=== PATIENT | female | born 1960 | race Caucasian/White ===

== ENCOUNTER 2017-12-08 21:33 | Emergency (ER) | payer MEDICAID ==
--- NOTE | 2017-12-08 21:57 | Emergency Department Record ---
History of Present Illness - General Chief Complaint: Back Pain/Injury Stated Complaint: LT SIDE HIP/BACK PAIN Time Seen by Provider: 12/08/17 21:53 Source: Patient Mode of Arrival: Ambulatory Limitations: No limitations - History of Present Illness Initial Comments: 57 yo female presents to ED for evaluation of left sided back and hip pain following a fall onto her RIGHT side 2 days ago. Patient denies specific injury to the left hip or back during her fall. Patient reports taking Ultram and Flexeril for her symptoms that do provide some relief, but she reports that she still has a lot of pain after taking the medications. Patient denies lower extremity weakness on examination, and reports that she is able to ambulate without assistance following her fall. MD Complaint: Back pain Onset/Timin -: Days(s) Similar Symptoms Previously: No Place: Home Radiation: Left leg Severity: Mild Quality: Aching, Sharp Consistency: Getting worse Improves With: Movement Worsens With: Movement, Sitting upright, Walking Context: Fall Associated Symptoms: Denies other symptoms Treatments Prior to Arrival: Prescription analgesics - Related Data Previous Rx's Medication Instructions Recorded Diazepam [Valium] 5 mg PO Q8H PRN #15 tab 12/08/17 Ibuprofen [Motrin] 800 mg PO Q6H #30 tab 12/08/17 Tramadol HCl [Ultram] 50 mg PO Q6H PRN #15 tab 12/08/17 Allergies Allergy/AdvReac Type Severity Reaction Status Date / Time acetaminophen Allergy CHEST PAIN Unverified 10/15/17 09:04 [From Tylenol-Codeine] codeine phosphate Allergy CHEST PAIN Unverified 10/15/17 09:04 [From Tylenol-Codeine] Travel Screening - Travel/Exposure Within Last 30 Days Have you traveled within the last 30 days?: No - Travel/Exposure Within Last Year Have you traveled outside the [place] in the last year?: No - Additonal Travel Details Have you been exposed to anyone with a communicable illness?: No - Travel Symptoms Symptom Screening: None Review of Systems Constitutional: Denies: Chills, Fever, Malaise, Night sweats Eyes: Denies: Eye discharge, Eye pain ENT: Denies: Congestion, Ear pain, Epistaxis Respiratory: Denies: Cough, Dyspnea Cardiovascular: Denies: Chest pain, Dyspnea on exertion Endocrine: Denies: Fatigue, Heat or cold intolerance Gastrointestinal: Denies: Abdominal pain, Nausea, Vomiting Genitourinary: Denies: Incontinence, Retention Musculoskeletal: Reports: Arthralgia, Back pain. Denies: Gout, Joint swelling Skin: Denies: Bruising, Change in color Neurological: Denies: Abnormal gait, Confusion, Headache, Seizure Psychiatric: Denies: Anxiety Hematological/Lymphatic: Denies: Anemia, Blood Clots Past Medical History - SOCIAL HISTORY Smoking Status: Current every day smoker Alcohol Use: Occasional Drug Use: None - RESPIRATORY Hx Respiratory Disorders: No - CARDIOVASCULAR Hx Cardio Disorders: Yes Hx Chest Pain: Yes (2009) Comment:: hypercholesteremia - NEURO Hx Neuro Disorders: No - GI Hx GI Disorders: No - Hx Genitourinary Disorders: No - ENDOCRINE Hx Endocrine Disorders: Yes Hx Diabetes: Yes - MUSCULOSKELETAL Hx Musculoskeletal Disorders: Yes Hx Fibromyalgia: Yes - PSYCH Hx Psych Problems: Yes Hx Anxiety: Yes Hx Depression: Yes - HEMATOLOGY/ONCOLOGY Hx Hematology/Oncology Disorders: No Family Medical History Any Significant Family History?: No Hx Cancer: Grandparents Hx Diabetes: Grandparents Physical Exam - General General Appearance: Alert, Oriented x3, Cooperative, Mild distress Limitations: No limitations - Head Head exam: Atraumatic, Normocephalic, Normal inspection Head exam detail: negative: Abrasion, Contusion, Buitrago's sign, General tenderness, Hematoma, Laceration - Eye Eye exam: Normal appearance. negative: Conjunctival injection, Periorbital swelling, Periorbital tenderness, Scleral icterus - ENT Ear exam: negative: Auricular hematoma, Auricular trauma Nasal Exam: negative: Active bleeding, Discharge, Dried blood, Foreign body Mouth exam: negative: Drooling, Laceration, Tongue elevation - Neck Neck exam: Normal inspection. negative: Meningismus, Tenderness - Respiratory Respiratory exam: Normal lung sounds bilaterally. negative: Rales, Respiratory distress, Rhonchi, Stridor - Cardiovascular Cardiovascular Exam: Regular rate, Normal rhythm, Normal heart sounds - GI/Abdominal GI/Abdominal exam: Soft. negative: Rebound, Rigid, Tenderness - Rectal Rectal exam: Deferred - exam: Deferred - Extremities Extremities exam: Normal inspection, Full ROM. negative: Calf tenderness, Pedal edema, Tenderness - Back Back exam: Reports: Tenderness (TTP at the left SI joint on examination). Denies: CVA tenderness (R), CVA tenderness (L) - Neurological Neurological exam: Alert, Normal gait, Oriented X3 - Psychiatric Psychiatric exam: Normal affect, Normal mood - Skin Skin exam: Normal color. negative: Abrasion Type of lesion: negative: abrasion Course Vital Signs 12/08/17 12/08/17 21:39 21:50 Temperature 98.0 F Pulse Rate 93 H Respiratory 18 Rate Blood Pressure 123/72 Pulse Ox 98 - Reevaluation(s) Reevaluation #1: 12/08/17 22:28 Hip/Pelvis: No acute process Patient was updated on her results, will replace her Flexeril with Valium as needed as the patient reports that they don't really improve her symptoms, prescribe #15 Ultram as she is almost out, and Motrin 800 mg. Patient agrees with the plan as discussed. Disposition Disposition: Discharge Clinical Impression: Muscle strain Disposition: Home, Self-Care Condition: (2) Stable Instructions: Muscle Strain (ED) Additional Instructions: Return to ED if your symptoms worsen or if you have any concerns. Motrin, Ultram, and Valium as directed. Follow-up with your family doctor in 3-5 days as directed. Prescriptions: Diazepam [Valium] 5 mg PO Q8H PRN #15 tab PRN Reason: Spasms Ibuprofen [Motrin] 800 mg PO Q6H #30 tab Tramadol HCl [Ultram] 50 mg PO Q6H PRN #15 tab PRN Reason: Pain - Moderate (5-7) Forms: Patient Portal Access Time of Disposition: 22:32 Quality - Quality Measures Quality Measures: N/A - Blood Pressure Screening Does Patient Have Any of the Following: No Blood Pressure Classification: Pre-Hypertensive BP Reading Systolic Measurement: 123 Diastolic Measurement: 72 Screening for High Blood Pressure: < Pre-Hypertensive BP, F/U Documented > [ G8950] Pre-Hypertensive Follow-up Interventions: Referral to alternative/primary care provider.
[2017-12-08] MEDS ORDERED: DIAZEPAM 5 MG TABLET PO ONE (22:27)
--- NOTE | 2017-12-10 07:06 | RADIOLOGY REPORT ---
EXAM: BILATERAL HIPS WITH PELVIS HISTORY: BILATERAL HIP PAIN STATUS POST FALL ON FRIDAY. TECHNIQUE: An AP view of the pelvis and AP and lateral views of both hips were obtained. Comparison: Previous CT scan of the pelvis dated 07/13/15. Encounter: Initial. FINDINGS: The bones appear intact. There is no acute fracture or dislocation. There are mild arthritic changes of both hips and sacroiliac joints which appear similar to the previous study. Degenerative changes are partially visualized within the lower lumbar spine. The bony pelvis appears intact. IMPRESSION: 1. NO ACUTE HIP OR PELVIC PATHOLOGY. 2. MILD ARTHRITIC CHANGES WITHIN THE HIPS AND SACROILIAC JOINTS. JOB NUMBER: [id number] MTDD
== END 2017-12-08 22:48 | disposition home or self-care (01) ==
LOC: ER 21:33
DX: S76.012A Strain of muscle, fascia and tendon of left hip, initial encounter (principal); S39.012A Strain of muscle, fascia and tendon of lower back, initial encounter; W00.0XXA Fall on same level due to ice and snow, initial encounter; F17.210 Nicotine dependence, cigarettes, uncomplicated; Y92.009 Unspecified place in unspecified non-institutional (private) residence as the place of occurrence of the external cause
CPT/HCPCS: 99283 ×2; 73521; J3490

== ENCOUNTER 2018-03-12 20:01 | Emergency (ER) | payer MEDICAID ==
--- NOTE | 2018-03-12 20:17 | Emergency Department Record ---
History of Present Illness - General Chief complaint: Pain Stated complaint: INJURY TO LEFT ARM AND SHOULDER Time Seen by Provider: 03/12/18 20:02 Source: Patient Mode of Arrival: Ambulatory Limitations: No limitations - History of Present Illness Initial comments: 57 yo female presents to ED for evaluation of left shoulder pain following an injury last night. Patient reports that her son was helping her stand from a chair 24 hours ago and gently helped pull her up using the left upper extremity. Patient reports a "pop" sensation followed by pain that worsened today. Patient did take oxycodone for her pain symptoms this morning. Patient is currently post-op from a right rotator cuff tear procedure through [facility] in mid-January of this year. Patient reports pain with movement, but reports ROM is intact. MD Complaint: Joint pain Onset/Timin -: Hour(s) Location: Left, Shoulder Severity scale (1-10): 9 Quality: Aching, Dull, Sharp Consistency: Constant Improves with: Rest Worsens with: Exertion, Palpation Associated Symptoms: Denies other symptoms - Related Data Previous Rx's Medication Instructions Recorded Hydrocodone/APAP 5/325Mg [[place] 1 each PO Q6H PRN #10 tab 03/12/18 5Mg/325Mg] Allergies Allergy/AdvReac Type Severity Reaction Status Date / Time codeine phosphate Allergy CHEST PAIN Verified 03/12/18 20:12 [From Tylenol-Codeine] Travel Screening - Travel/Exposure Within Last 30 Days Have you traveled within the last 30 days?: No - Travel Symptoms Symptom Screening: None Review of Systems Constitutional: Denies: Chills, Fever, Malaise, Night sweats Eyes: Denies: Eye discharge, Eye pain ENT: Denies: Congestion, Ear pain, Epistaxis Respiratory: Denies: Cough, Dyspnea Cardiovascular: Denies: Chest pain, Dyspnea on exertion Endocrine: Denies: Fatigue, Heat or cold intolerance Gastrointestinal: Denies: Abdominal pain, Nausea, Vomiting Genitourinary: Denies: Incontinence, Retention Musculoskeletal: Reports: Arthralgia. Denies: Back pain, Gout, Joint swelling Skin: Denies: Bruising, Change in color Neurological: Denies: Abnormal gait, Confusion, Headache, Seizure Psychiatric: Denies: Anxiety Hematological/Lymphatic: Denies: Anemia, Blood Clots Past Medical History - SOCIAL HISTORY Smoking Status: Current every day smoker - RESPIRATORY Hx Respiratory Disorders: No - CARDIOVASCULAR Hx Cardio Disorders: Yes Hx Chest Pain: Yes (2009) Comment:: hypercholesteremia - NEURO Hx Neuro Disorders: No - GI Hx GI Disorders: No - Hx Genitourinary Disorders: No - ENDOCRINE Hx Endocrine Disorders: Yes Hx Diabetes: Yes - MUSCULOSKELETAL Hx Musculoskeletal Disorders: Yes Hx Arthritis: Yes Hx Fibromyalgia: Yes Comment:: Scoliosis; DDD - PSYCH Hx Psych Problems: Yes Hx Anxiety: Yes Hx Depression: Yes - HEMATOLOGY/ONCOLOGY Hx Hematology/Oncology Disorders: No Family Medical History Any Significant Family History?: Yes Hx Cancer: Grandparents Hx Diabetes: Grandparents Physical Exam - General General Appearance: Alert, Oriented x3, Cooperative Limitations: No limitations - Head Head exam: Atraumatic, Normocephalic, Normal inspection Head exam detail: negative: Abrasion, Contusion, Buitrago's sign, General tenderness, Hematoma, Laceration - Eye Eye exam: Normal appearance. negative: Conjunctival injection, Periorbital swelling, Periorbital tenderness, Scleral icterus - ENT Ear exam: negative: Auricular hematoma, Auricular trauma Nasal Exam: negative: Active bleeding, Discharge, Dried blood, Foreign body Mouth exam: negative: Drooling, Laceration, Muffled voice, Tongue elevation - Neck Neck exam: Normal inspection. negative: Meningismus, Tenderness - Respiratory Respiratory exam: Normal lung sounds bilaterally. negative: Rales, Respiratory distress, Rhonchi, Stridor - Cardiovascular Cardiovascular Exam: Regular rate, Normal rhythm, Normal heart sounds - GI/Abdominal GI/Abdominal exam: Soft. negative: Rebound, Rigid, Tenderness - Rectal Rectal exam: Deferred - exam: Deferred - Extremities Extremities exam: Tenderness, Other (RUE already in post-operative splint, left shoulder has no clinical signs for dislocation, mild TTP along the supraspinatis region posteriorly, FROM intact actively (with pain), compartments are soft on examination, strong distal radial pulse is present.). negative: Calf tenderness, Pedal edema - Back Back exam: Denies: CVA tenderness (R), CVA tenderness (L) - Neurological Neurological exam: Alert, Normal gait, Oriented X3 - Psychiatric Psychiatric exam: Normal affect, Normal mood - Skin Skin exam: Normal color. negative: Abrasion Type of lesion: negative: abrasion Course Vital Signs 03/12/18 20:05 Temperature 98 F Pulse Rate [ 103 H Pulse Ox Probe] Respiratory 20 Rate Blood Pressure 116/60 [Left Arm] Pulse Ox 98 - Reevaluation(s) Reevaluation #1: 03/12/18 20:35 Left shoulder: Mild DJD, no acute process identified. Patient was updated on her radiology result, recommended follow-up with her orhtopedist through [facility] for possible MRI of the shoulder for further evaluation. Patient verbalizes understanding of all instructions, and the patient appears stable for discharge at this time. Disposition Disposition: Discharge Clinical Impression: Left shoulder strain Qualifiers: Encounter type: initial encounter Qualified Code(s): S46.912A - Strain of unspecified muscle, fascia and tendon at shoulder and upper arm level, left arm , initial encounter Disposition: Home, Self-Care Condition: (2) Stable Instructions: Rotator Cuff Injury (ED) Additional Instructions: Return to ED if your symptoms worsen or if you have any concerns. Continue oxycodone as previously prescribed. [facility] as directed. Prescriptions: Hydrocodone/APAP 5/325Mg [[place] 5Mg/325Mg] 1 each PO Q6H PRN #10 tab PRN Reason: Pain - Moderate (5-7) Forms: Patient Portal Access Time of Disposition: 20:18 Quality - Quality Measures Quality Measures: N/A - Blood Pressure Screening Does Patient Have Any of the Following: No Blood Pressure Classification: Normal BP Reading Systolic Measurement: 109 Diastolic Measurement: 65 Screening for High Blood Pressure: < Normal BP, F/U Not Required > [G8783]
--- NOTE | 2018-03-13 10:29 | RADIOLOGY REPORT ---
EXAM: LEFT SHOULDER HISTORY: SHOULDER PAIN. TECHNIQUE: Three views of the left shoulder were obtained. Comparison: None. Encounter: Initial. FINDINGS: Osteopenia. Degenerative changes of the acromioclavicular and glenohumeral joints. Negative for an acute fracture or dislocation. The soft tissues are unremarkable. IMPRESSION: OSTEOPENIA. DEGENERATIVE CHANGE. JOB NUMBER: [id number] MTDD
== END 2018-03-12 20:52 | disposition home or self-care (01) ==
LOC: ER 20:01
DX: S46.912A Strain of unspecified muscle, fascia and tendon at shoulder and upper arm level, left arm, initial encounter (principal); X50.0XXA Overexertion from strenuous movement or load, initial encounter; F17.210 Nicotine dependence, cigarettes, uncomplicated; E11.9 Type 2 diabetes mellitus without complications
CPT/HCPCS: 99283

== ENCOUNTER 2018-09-24 14:38 | Emergency (ER) | payer MEDICAID ==
--- NOTE | 2018-09-24 15:11 | Emergency Department Record ---
History of Present Illness - General Chief Complaint: Numbness Stated Complaint: RT HAND IS NUMB Time Seen by Provider: 09/24/18 14:50 Source: Patient Mode of Arrival: Ambulatory Limitations: No limitations - History of Present Illness Initial Comments: The patient is here due to chronic R hand numbness. She has had the problem for at least 2 months. The symptoms start mainly at night and she wakes up and has to shake the hand sometimes to get the feeling back. There is no reported R hand or arm weakness. The symptoms seem to be worsening over the last 2 weeks. The patient denies any LOAIZA, neck pain, CP, SOB, balance issues, visual changes, or leg numbness or weakness. She does have an extensive hx of arthritis. Since the symptoms are worsening she did call her Orthopedic Surgeon at [facility] due to her chronic R shoulder issues and was told it was unlikely a problem with the R shoulder joint. She then called her PCP and was told she should go to the ER due to having more resources to work with in the ER. Onset/Timin -: Month(s) Location: Other History of same: No Place: Home Severity: Moderate Improves With: None Worsens With: None Associated Symptoms: Denies other symptoms Treatments Prior to Arrival: None - Ayden Coma Scale Eye Response: (4) Open spontaneously Motor Response: (6) Obeys commands Verbal Response: (5) Oriented Ayden Total: 15 - Related Data Allergies/Adverse Reactions: Allergies Allergy/AdvReac Type Severity Reaction Status Date / Time codeine phosphate Allergy CHEST PAIN Verified 09/24/18 14:50 [From Tylenol-Codeine] Travel Screening - Travel/Exposure Within Last 30 Days Have you traveled within the last 30 days?: No Review of Systems Constitutional: Denies: Chills, Fever Eyes: Denies: Eye discharge ENT: Denies: Congestion Respiratory: Denies: Cough, Dyspnea Past Medical History - SOCIAL HISTORY Smoking Status: Current every day smoker Alcohol Use: None Drug Use: None - RESPIRATORY Hx Respiratory Disorders: No - CARDIOVASCULAR Hx Cardio Disorders: Yes Hx Chest Pain: Yes (2009) Comment:: hypercholesteremia - NEURO Hx Neuro Disorders: No - GI Hx GI Disorders: No - Hx Genitourinary Disorders: No - ENDOCRINE Hx Endocrine Disorders: Yes Hx Diabetes: Yes - MUSCULOSKELETAL Hx Musculoskeletal Disorders: Yes Hx Arthritis: Yes Hx Fibromyalgia: Yes Comment:: Scoliosis; DDD - PSYCH Hx Psych Problems: Yes Hx Anxiety: Yes Hx Depression: Yes - HEMATOLOGY/ONCOLOGY Hx Hematology/Oncology Disorders: No Family Medical History Any Significant Family History?: Yes Hx Cancer: Grandparents Hx Diabetes: Grandparents Physical Exam - General General Appearance: Alert, Oriented x3, Cooperative, No acute distress - Head Head exam: Atraumatic, Normocephalic, Normal inspection - Eye Eye exam: Normal appearance, PERRL, EOMI - Neck Neck exam: Normal inspection, Full ROM. negative: Tenderness - Respiratory Respiratory exam: Normal lung sounds bilaterally. negative: Respiratory distress - Cardiovascular Cardiovascular Exam: Regular rate, Normal rhythm, Normal heart sounds - GI/Abdominal GI/Abdominal exam: Soft, Normal bowel sounds. negative: Tenderness - Extremities Extremities exam: Normal inspection, Full ROM, Normal capillary refill. negative: Tenderness - Neurological Neurological exam: Alert, CN II-XII intact, Motor sensory deficit (There is very subtle subjective decreased sensation to the R hand in a glove distribution. There is no weakness to the R arm or hand. ), Normal gait, Oriented X3, Reflexes normal, Other (Neg Drift and Rhomberg exams.). negative: Abnormal gait, Altered - Psychiatric Psychiatric exam: negative: Anxious Course Vital Signs 09/24/18 14:46 Temperature 97.8 F Pulse Rate 84 Respiratory 20 Rate Blood Pressure 125/74 Pulse Ox 100 - Reevaluation(s) Reevaluation #1: I did discuss the xrays with the patient and the need for further evaluation for possibly a cervical nerve issue or Carpal tunnel dz. I did discuss the case with the patient's PCP Dory Williamson and she will f/u with the patient on those issues. 09/24/18 16:14 Medical Decision Making - Data Complexity MDM Data: X-Ray Ordered and/or Reviewed - Radiology Data Radiology results: Report reviewed (Cervical Spine: Multilevel DJD) Disposition Disposition: Discharge Clinical Impression: Numbness and tingling in right hand Disposition: Home, Self-Care Condition: (2) Stable Instructions: Paresthesia (ED) Additional Instructions: Please take Tylenol for pain and please see your family doctor for further evaluation of your chronic R hand symptoms. Please wear the wrist splint until evaluation. Return to the ER for any worsening symptoms. Forms: Patient Portal Access Time of Disposition: 16:16 Quality - Quality Measures Quality Measures: N/A - Blood Pressure Screening View Details: Yes Does Patient Have Any of the Following: No Blood Pressure Classification: Pre-Hypertensive BP Reading Systolic Measurement: 125 Diastolic Measurement: 74 Screening for High Blood Pressure: < Pre-Hypertensive BP, F/U Documented > [ G8950] Pre-Hypertensive Follow-up Interventions: Referral to alternative/primary care provider.
--- NOTE | 2018-09-26 23:57 | RADIOLOGY REPORT ---
EXAM: CERVICAL SPINE Minimum 4 Views HISTORY: RIGHT HAND PAIN AND NUMBNESS, NO KNOWN INJURY, NUMBNESS WORSE FOR TWO WEEKS. TECHNIQUE: Six views cervical spine. COMPARISON: None. ENCOUNTER: Nonapplicable. FINDINGS: There is some loss of the normal cervical lordosis, likely due to positioning or spasm. Narrowing of the 5th and 6th cervical interspaces with associated hypertrophic spurring. There is probably fusion of the C6-7 vertebral bodies. No prevertebral soft tissue swelling is evident. No definite fracture or destructive lesion seen in the cervical spine. Metallic density within the left side of the mandible may simply be due to prior dental work although clinical correlation is suggested. IMPRESSION: 1. LOSS OF LORDOSIS, LIKELY DUE TO POSITIONING OR SPASM. 2. MULTILEVEL DEGENERATIVE CHANGE IN THE CERVICAL SPINE, PROBABLY WITH FUSION OF THE BODIES OF THE C6 AND C7 VERTEBRAE. OTHER FINDINGS NOTED ABOVE. JOB NUMBER: [id number] [facility]
== END 2018-09-24 16:10 | disposition home or self-care (01) ==
LOC: ER 14:38
DX: R20.0 Anesthesia of skin (principal); R20.2 Paresthesia of skin; F17.210 Nicotine dependence, cigarettes, uncomplicated
CPT/HCPCS: 72050; 99283

== ENCOUNTER 2018-10-30 08:57 | Day surgery (SDC) | payer MEDICAID ==
[2018-10-30] MEDS ORDERED: PROPOFOL 10 MG/ML VIAL IV ONE (08:58)
[2018-10-30] MEDS ORDERED: ONDANSETRON HCL IV 4 MG/2 ML VIAL IVP ONE (08:58)
[2018-10-30] MEDS ORDERED: LIDOCAINE 2% MDV (20MG/ML) 20ML VIAL IV ONE (08:58)
--- NOTE | 2018-11-04 11:40 | Operative Note ---
DATE OF SURGERY: 10/30/2018 SURGEON: Melo Kwon MD OPERATION: ESOPHAGOGASTRODUODENOSCOPY. INDICATIONS: This is a 58-year-old female with history of epigastric pain who presented for esophagogastroduodenoscopy. POSTOPERATIVE DIAGNOSES: 1. Normal esophagus with no evidence of reflux disease. 2. Diffuse gastritis. 3. Normal duodenum. ANESTHESIA: Sedation is per Anesthesia. Pulse oximetry was monitored throughout the procedure to maintain O2 saturation of 90% or greater. Supplemental oxygen was administered via nasal cannula. Cardiac and vital signs were monitored throughout the duration of the procedure, and they were stable. The procedure of esophagogastroduodenoscopy and risks and benefits of the procedure, including the risk of bleeding and perforation, among others, were explained to the patient who voiced understanding and agreed to have the procedure done. Physical examination was performed, and the patient was found stable for sedation. PROCEDURE: The patient was placed in the left lateral position. Sedation was initiated. A plastic bite block was inserted into the oral cavity. The Olympus [id number] gastroscope was introduced into the oral cavity and advanced to the proximal esophagus without difficulty. The esophageal mucosa was carefully examined upon introduction of the gastroscope. The proximal and mid and distal esophageal mucosa appeared normal. The gastroscope was then advanced into the stomach, and surveillance of the stomach revealed diffuse erythema along the gastric body and antrum but no ulcers were noted. The gastroscope was then advanced to the descending duodenum without difficulty. The duodenal bulb and descending duodenum appeared normal. The gastroscope was then withdrawn into the stomach and retroflexion was performed. There were no other lesions noted. The gastroscope was then withdrawn while carefully examining the gastric and esophageal mucosa. No other lesions noted. Multiple gastric biopsies were obtained. The patient remained with stable vital signs and was transferred to the recovery room. RECOMMENDATIONS: 1. The patient should continue on her proton pump inhibitors. 2. Follow up on the biopsies. 3. I would be happy to see her back in the office as needed. Thank you for allowing me to participate in the care of your patient. CC: LLOYD Henderson
== END 2018-10-30 11:08 | disposition home or self-care (01) ==
LOC: HOP 08:57
PROVIDERS: ATTEND Internal Medicine Gastroenterology
DX: R10.13 Epigastric pain (principal); K29.70 Gastritis, unspecified, without bleeding; K21.9 Gastro-esophageal reflux disease without esophagitis; E78.00 Pure hypercholesterolemia, unspecified; G25.81 Restless legs syndrome; E11.9 Type 2 diabetes mellitus without complications; R60.9 Edema, unspecified
CPT/HCPCS: 43239; 00731; J2405

== ENCOUNTER 2019-04-13 06:42 | Day surgery (SDC) | payer MEDICAID ==
[~2019-04-13 06:42] MED LIST: ACETAMINOPHEN 1,000 MG/100 ML BTL IVPB ONE; FAMOTIDINE 20MG TABLET PO ONE; MECLIZINE 25 MG TABLET PO ONE; METOCLOPRAMIDE 10 MG TABLET PO ONE
[2019-04-13] MEDS ORDERED: KETOROLAC 30 MG/ML VIAL IVP ONE (06:43)
[2019-04-13] MEDS ORDERED: ONDANSETRON HCL IV 4 MG/2 ML VIAL IVP ONE (06:43)
[2019-04-13] MEDS ORDERED: MIDAZOLAM HCL 2MG/2ML VIAL IV ONE (06:43)
[2019-04-13] MEDS ORDERED: PROPOFOL 10 MG/ML VIAL IV ONE (06:43)
[2019-04-13] MEDS ORDERED: LIDOCAINE 2% MDV (20MG/ML) 20ML VIAL IV ONE (06:43)
[2019-04-13] MEDS ORDERED: SEVOFLURANE 250 ML INH ONE (06:43)
[2019-04-13] MEDS ORDERED: FENTANYL PF 100MCG/2ML VIAL IV ONE (06:43)
[2019-04-13] MEDS ORDERED: RINGERS SOLUTION,LACTATED 1,000 ML IV ONE ×2 (07:20→09:04)
[2019-04-13] MEDS ORDERED: CEFAZOLIN 1G VIAL IVPB ONE (08:35)
[2019-04-13] MEDS ORDERED: HYDROCODONE/APAP 5/325MG TABLET PO ONE (09:50)
--- NOTE | 2019-04-15 07:50 | Operative Note ---
DATE OF SURGERY: 04/13/2019 SURGEON: Figueroa Ortiz DO PREOPERATIVE DIAGNOSIS: Carpal tunnel syndrome of the right wrist. POSTOPERATIVE DIAGNOSIS: Carpal tunnel syndrome of the right wrist. OPERATION: Decompression right median nerve at the wrist using 3.5 loop magnification. DESCRIPTION OF PROCEDURE: This 58-year-old female was taken to the operating room and placed in the supine position on the operating room table. General anesthetic was administered. The right upper extremity was elevated, prepped with Hibiclens, and draped in the usual sterile fashion. It was exsanguinated and the tourniquet inflated to 250 mmHg. A palmar incision was utilized following the hypothenar crease, and dissection was carried down through the skin and subcutaneous tissue. The palmar fascia identified and split in line with the skin incision. The flexor retinaculum was subsequently identified. It was punctured and then split to its proximal margin. With the contents of the carpal tunnel under direct vision, the transverse carpal ligament was transected along its ulnar border. The patient did have a very prominent palmaris brevis tendon overlying the transverse carpal ligament. We did not transect this muscle but we elevated it with a freer elevator to expose the transverse carpal ligament beneath and then we shifted it proximally for exposure to the median nerve. The nerve itself appeared to be grossly normal. After the wrist had been completely decompressed, the recurrent motor branch of the median nerve was identified and found to be intact. The wound was irrigated and the tourniquet released. Hemostasis obtained with the electrocautery. The wound closed with interrupted 6-0 nylon suture. Sterile dressings were applied with plaster splint immobilization with the wrist in slight dorsiflexion and the thumb in an adducted position. The patient was then taken to the recovery room in stable condition. GROSS PATHOLOGY: This patient median nerve appeared grossly normal. Some thickening of the tenosynovium of the flexor tendons was present in the carpal canal but this was not disturbed. The patient had a very prominent palmaris brevis muscle, and this muscle was not detached but elevated and the transverse carpal ligament transected underneath it. CC: LLOYD Henderson
== END 2019-04-13 10:10 | disposition home or self-care (01) ==
LOC: SUR 06:42
PROVIDERS: ATTEND Orthopaedic Surgery
DX: G56.01 Carpal tunnel syndrome, right upper limb (principal); E11.9 Type 2 diabetes mellitus without complications; E78.00 Pure hypercholesterolemia, unspecified; K21.9 Gastro-esophageal reflux disease without esophagitis; F17.210 Nicotine dependence, cigarettes, uncomplicated
CPT/HCPCS: 64721; 64727; 01810; 36416; 82948; J1885; J2405; J3010; J0690; J7120

== ENCOUNTER 2019-06-24 23:36 | Emergency (ER) | payer MEDICAID ==
--- NOTE | 2019-06-24 23:46 | Emergency Department Record ---
History of Present Illness - General Stated Complaint: CHEST PAIN Time Seen by Provider: 06/24/19 23:37 Source: Patient, Family Mode of Arrival: Ambulatory Limitations: No limitations - History of Present Illness Initial Comments: 58 yo female presents with chest pain that has been coming and going over the last 30-45 minutes. The pain is a ache just left of the middle of the chest. No radiation of the pain to the jaw, shoulders, or back. She reports she was sitting watching TV at the onset. The discomfort has subsided at this time. No known CAD. She is a smoker, treated for diabetes, elevated cholesterol. PCP Dory Williamson at [facility]. Complaint: Chest pain -: Minutes(s) (30) Onset: During rest Pain Location: Left chest Pain Radiation: None Severity: Moderate Quality: Aching, Sharp Consistency: Intermittent Improves With: Nothing Worsens With: Nothing Context: Other Anginal Symptoms: Other Treatments Prior to Arrival: None - Related Data Allergies Allergy/AdvReac Type Severity Reaction Status Date / Time codeine phosphate Allergy Intermediate NAUSEA AND Unverified 06/16/19 10:06 [From Tylenol-Codeine] VOMITING Review of Systems Constitutional: Reports: Chills. Denies: Fever, Malaise Eyes: Denies: Eye discharge ENT: Denies: Congestion, Throat pain Respiratory: Denies: Cough, Dyspnea, Hemoptysis, Stridor, Wheezes Cardiovascular: Reports: Chest pain. Denies: Dyspnea on exertion, Edema, Palpitations, Syncope Endocrine: Denies: Fatigue, Polydipsia, Polyuria Gastrointestinal: Denies: Abdominal pain, Diarrhea, Nausea, Vomiting Genitourinary: Denies: Dysuria, Urgency Musculoskeletal: Denies: Arthralgia, Back pain, Joint swelling, Myalgia, Neck pain Skin: Denies: Bruising, Change in color, Rash Neurological: Denies: Confusion, Headache Psychiatric: Denies: Anxiety Hematological/Lymphatic: Denies: Easy bleeding, Easy bruising Past Medical History - SOCIAL HISTORY Smoking Status: Current every day smoker - RESPIRATORY Hx Respiratory Disorders: Yes Hx Bronchitis: Yes (long ago) - CARDIOVASCULAR Hx Cardio Disorders: Yes 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) Hx Edema: Yes (on Lasix-no edema now) Hx Heart Attack: No Hx Hypotension: Yes (just a few times hx) Comment:: hypercholesteremia - NEURO Hx Neuro Disorders: Yes Hx Neuropathy: Yes (both hands-carpal tunnel-rt worse) Hx Weakness: Yes (rt wrist) - GI Hx GI Disorders: Yes Hx Reflux: Yes Hx Nausea/Vomiting: Yes (occasionally-GERD related) - Hx Genitourinary Disorders: Yes Hx Kidney Stones: Yes (hx of-9 lithotripies) Comment:: hysterectomy 2000 - ENDOCRINE Hx Endocrine Disorders: Yes Hx Diabetes: Yes (20 yrs ago dx) Comment:: last A1c 6.9-- 6 months ago/ last FBS 100 - MUSCULOSKELETAL Hx Musculoskeletal Disorders: Yes Hx Arthritis: Yes (back and hands) Hx Fibromyalgia: Yes Comment:: Scoliosis; DDD - PSYCH Hx Psych Problems: Yes Hx Depression: Yes Hx Suicide Attempt: (ideation only after ) - HEMATOLOGY/ONCOLOGY Hx Hematology/Oncology Disorders: Yes Hx Blood Transfusions: Yes (1981 post -4 units) Hx Blood Transfusion Reaction: No Family Medical History Hx Cancer: Grandparents Hx Diabetes: Grandparents Physical Exam - General General Appearance: Alert, Oriented x3, Cooperative, No acute distress Limitations: No limitations - Head Head exam: Atraumatic, Normal inspection - Eye Eye exam: Normal appearance, PERRL. negative: Conjunctival injection, Scleral icterus - ENT ENT exam: Normal exam, Mucous membranes moist Ear exam: Normal external inspection Nasal Exam: Normal inspection Mouth exam: Normal external inspection - Neck Neck exam: Normal inspection, Full ROM - Respiratory Respiratory exam: Normal lung sounds bilaterally. negative: Accessory muscle use, Decreased breath sounds, Respiratory distress, Rhonchi, Stridor, Wheezes - Cardiovascular Cardiovascular Exam: Regular rate, Normal rhythm, Normal heart sounds. negative: Tachycardia Peripheral Pulses: 2+: Radial (R), Radial (L) - GI/Abdominal GI/Abdominal exam: Soft. negative: Distended, Guarding, Tenderness - Rectal Rectal exam: Deferred - exam: Deferred - Extremities Extremities exam: Normal inspection. negative: Tenderness - Back Back exam: Denies: CVA tenderness (R), CVA tenderness (L) - Neurological Neurological exam: Alert, Normal gait, Oriented X3 - Psychiatric Psychiatric exam: Normal affect, Normal mood. negative: Agitated, Anxious - Skin Skin exam: Dry, Intact, Normal color, Warm. negative: Cyanosis, Diaphoretic, Erythema, Mottled Course - Reevaluation(s) Reevaluation #1: The patient reports very faint residual ache but essentially gone. 06/24/19 23:43 EKG #1: 23:35 Rate: 85 Rhythm: sinus [place]: normal Intervals: normal ST segments: no acute changes EMR reviewed ECHO 01/2018 No acute abnormality Normal Lexiscan 01/2018 Prior: 06/24/2019 06/25/19 00:15 Aspirin given in the ED No acute changes on the CBC The BMP was reviewed. Normal renal function. Glucose is 197 06/25/19 00:23 The troponin and the D-dimer are in the normal range. 06/25/19 00:38 The results were discussed with the patient Given her risk factors of age, smoking, diabetes, and elevated cholesterol I recommend admission for chest pain. There are no cardiovascular resourced at [facility] tomorrow. I recommend transfer. She chose [facility] [place] transfer. 06/25/19 01:08 Dr Mora accepts the patient for transfer to [facility] Medical Decision Making - Lab Data Result diagrams: 06/24/19 23:50 06/24/19 23:50 Disposition Disposition: Transfer Clinical Impression: Chest pain Disposition: Acute Care Hospital Transfer Transfer To: [facility] Reason For Transfer: Chest Pain Accepting Physician: Dr Mora Time Discussed w/Accepting Physician: 00:40 Condition: (2) Stable Time of Disposition: 00:40 Quality - Quality Measures Quality Measures: N/A - Blood Pressure Screening Does Patient Have Any of the Following: No Blood Pressure Classification: Pre-Hypertensive BP Reading Systolic Measurement: 165 Diastolic Measurement: 81 Screening for High Blood Pressure: < Pre-Hypertensive BP, F/U Documented > [[id number]] Pre-Hypertensive Follow-up Interventions: Referral to alternative/primary care provider.
[2019-06-24] MEDS ORDERED: ASPIRIN 81 MG CHEWABLE TABLET PO ONE (23:51)
[2019-06-25 00:01] LABS: ABSOLUTE NEUTROPHIL COUNT 4.09; HEMATOCRIT 40.5 % (35.0-47.0); HEMOGLOBIN 13.3 gm/dl (11.6-16.0); MEAN CELL VOLUME 90.6 fl (81-97); MEAN CORPUSCULAR HEMOGLOBIN 29.8 pg (27-33); MEAN CORPUSCULAR HGB CONC 32.8 g/dl (32-36); MEAN PLATELET VOLUME 8.5 fl (7.4-10.4); PLATELET COUNT 303 K/uL (130-400); RED BLOOD COUNT 4.47 M/uL (3.80-5.40); RED CELL DISTRIBUTION WIDTH 13.9 % (11.5-14.5); WHITE BLOOD COUNT W/O DIFF 7.4 K/uL (4.2-12.2)
[2019-06-25 00:09] LABS: BLOOD UREA NITROGEN 8 mg/dL (8-23); CREATININE 0.6 mg/dL (0.5-0.9); EST GLOMERULAR FILTRATION RATE > 60 mL/min
[2019-06-25 00:10] LABS: TOTAL PROTEIN 6.8 g/dL (6.6-8.7)
[2019-06-25 00:12] LABS: GLUCOSE,RANDOM 197 mg/dL (74-109)
[2019-06-25 00:15] LABS: ALBUMIN 4.5 g/dL (4.0-5.0); ALKALINE PHOSPHATASE 92 U/L (35-104); ALT/SGPT 10 U/L (<33); AST/SGOT 14 U/L (10.0-35.0)
[2019-06-25 00:18] LABS: ANISOCYTOSIS 1+; PARTIAL THROMBOPLASTIN TIME 28.3 SECONDS (24.5-39.1); PLATELET ESTIMATE NORMAL (NORMAL)
--- NOTE | 2019-06-25 12:31 | RADIOLOGY REPORT ---
EXAM: CHEST, TWO VIEWS HISTORY: SUDDEN ONSET OF CHEST PAIN TONIGHT. TECHNIQUE: Upright PA and lateral views of the chest were obtained. Comparison: Chest one view dated 11/24/15. FINDINGS: The heart is not enlarged and the pulmonary vasculature is nondilated. The aortic knob is atherosclerotic. The lungs and pleural spaces remain clear. There has been interval reversed right glenohumeral arthroplasty with the metallic prosthetic components appearing well seated, to the extent visualized. No acute osseous abnormality. IMPRESSION: NO RADIOGRAPHIC EVIDENCE OF ACUTE CARDIOPULMONARY DISEASE. JOB NUMBER: [id number] [facility]
== END 2019-06-25 02:04 | disposition short-term general hospital (02) ==
LOC: ER 23:36
DX: R07.89 Other chest pain (principal); R06.02 Shortness of breath; R79.89 Other specified abnormal findings of blood chemistry; R11.0 Nausea; E11.9 Type 2 diabetes mellitus without complications; F17.210 Nicotine dependence, cigarettes, uncomplicated
CPT/HCPCS: 71046; 80053; 84484; 85025; 85027; 85379; 85610; 85730; 93005; 93010; 99285